=== PATIENT | female | born 1950 | race Caucasian/White ===

== ENCOUNTER 2018-07-20 23:19 | Emergency (ER) | payer MEDICARE ==
[~2018-07-20] VITALS: Ht 162.6 cm; Wt 106.8 kg
[2018-07-20 23:22] VITALS: Ht 162.6 cm; Wt 106.8 kg
[2018-07-20] MEDS ORDERED: COZAAR50 MG PO (23:25)
[2018-07-20] MEDS ORDERED: GLUCOPHAGE1000 MG PO (23:26)
[2018-07-20] MEDS ORDERED: NEURONTIN 300300 MG PO (23:26)
[2018-07-20] MEDS ORDERED: DESERYL50 M2 PO (23:26)
[2018-07-20] MEDS ORDERED: ZYLOPRIM300 MG PO (23:26)
[2018-07-20] MEDS ORDERED: ZOCOR40 MG PO (23:26)
[2018-07-21 00:06] VITALS: BP 183/71
== END 2018-07-21 00:07 | disposition home or self-care (01) ==
LOC: D.ER 23:19
DX: I10 Essential (primary) hypertension (principal); F41.9 Anxiety disorder, unspecified; E11.9 Type 2 diabetes mellitus without complications

== ENCOUNTER → 2019-11-24 16:47 | Outpatient (CLI) | payer MEDICARE, OTHER ==
[2018-07-20 23:22] VITALS: BMI 40.4
== END | disposition home or self-care (01) ==
LOC: D.RAD 16:47
PROVIDERS: ATTEND Emergency Medicine
DX: M79.661 Pain in right lower leg (principal); R20.2 Paresthesia of skin

== ENCOUNTER → 2020-03-08 21:29 | Outpatient (CLI) | payer MEDICARE, OTHER ==
[2018-07-20 23:22] VITALS: BMI 40.4
[~2020-03-08 21:29] MED LIST: COZAAR50 MG PO; DESERYL50 M2 PO; GLUCOPHAGE1000 MG PO; NEURONTIN 300300 MG PO; ZOCOR40 MG PO; ZYLOPRIM300 MG PO
[2020-03-08 23:18] LABS: ANION GAP 11.4 mmol/L (8-16); CALCIUM 9.4 mg/dL (8.5-10.1); CARBON DIOXIDE 30.3 mmol/L (21.0-32.0); CREATININE - SERUM 1.6 mg/dL (0.6-1.3); POTASSIUM - SERUM 5.7 mmol/L (3.5-5.1)
[2020-03-09 01:17] LABS: HEMATOCRIT 37.7 % (36.0-48.0); HEMOGLOBIN 11.6 g/dL (12-16); MCH 28.6 pg (26.0-34.0); MCHC 30.8 g/dL (31.0-37.0); MCV 93.1 fL (80.0-100.0); MEAN PLATELET VOLUME 10.3 fL (7.4-10.4); PLATELET COUNT 215 10x3/uL (130-400); RBC 4.05 10x6/uL (4.00-5.40); RDW 16.1 % (11.5-14.5); WBC 5.8 10x3/uL (4.8-10.8)
[2020-03-09 09:59] LABS: ANISOCYTOSIS OCC; LYMPHOCYTES 22 % (15-50); MONOCYTES 6 % (2-11); NEUTROPHILS 70 % (40-80); PLATELET ESTIMATE NORMAL
== END | disposition home or self-care (01) ==
LOC: D.LABREF 21:29
PROVIDERS: ATTEND Legal Medicine
DX: I12.9 Hypertensive chronic kidney disease with stage 1 through stage 4 chronic kidney disease, or unspecified chronic kidney disease (principal); N18.1 Chronic kidney disease, stage 1

== ENCOUNTER 2020-07-09 09:24 | Inpatient (IN) | payer MEDICARE, OTHER ==
[~2020-07-09] VITALS: Ht 162.6 cm; Wt 115.5 kg
[2020-07-09 09:55] LABS: BASOPHILS 0.6 % (0-2); EOSINOPHILS 2.2 % (0-7); HEMATOCRIT 33.4 % (36.0-48.0); HEMOGLOBIN 10.4 g/dL (12-16); IMMATURE GRANULOCYTES 0.2 % (0-5); LYMPHOCYTES 17.7 % (15-50); MCH 29.2 pg (26.0-34.0); MCHC 31.1 g/dL (31.0-37.0); MCV 93.8 fL (80.0-100.0); MEAN PLATELET VOLUME 9.1 fL (7.4-10.4); MONOCYTES 8.5 % (2-11); NEUTROPHILS 70.8 % (40-80); PLATELET COUNT 189 10x3/uL (130-400); RBC 3.56 10x6/uL (4.00-5.40); RDW 15.8 % (11.5-14.5); WBC 8.2 10x3/uL (4.8-10.8)
[2020-07-09 10:02] LABS: ANION GAP 15.3 mmol/L (8-16); CALCIUM 9.1 mg/dL (8.5-10.1); CARBON DIOXIDE 17.5 mmol/L (21.0-32.0); CREATININE - SERUM 2.1 mg/dL (0.6-1.3); POTASSIUM - SERUM 5.8 mmol/L (3.5-5.1)
[2020-07-09 10:07] LABS: ALBUMIN 3.7 g/dL (3.4-5.0); BILIRUBIN - TOTAL 0.28 mg/dL (0.2-1.3); PROTEIN - SERUM 7.2 g/dL (6.4-8.2)
[2020-07-09 10:31] LABS: BILIRUBIN NEGATIVE (NEGATIVE); KETONE NEGATIVE (NEGATIVE); NITRITE NEGATIVE (NEGATIVE); UROBILINOGEN NORMAL mg/dL (< 2)
[2020-07-09 10:33] LABS: BACTERIA MODERATE HPF (NONE SEEN)
[2020-07-09 10:49] LABS: CKMB 1.9 U/L (0.0-3.6); CREATINE KINASE 74 UL (21-215); LIPASE 258 U/L (73-393); MAGNESIUM - SERUM 1.5 mg/dL (1.8-2.4); TROPONIN-I 0.017 ng/mL (0.000-0.060)
[2020-07-09 13:35] VITALS: BP 122/45
[2020-07-09 15:28] VITALS: BP 121/43
[2020-07-09 19:17] VITALS: BP 138/48
[2020-07-09 22:30] VITALS: BP 131/53
[2020-07-10] VITALS: BP 142/47
[2020-07-10 04:00] VITALS: BP 137/60
--- NOTE | 2020-07-10 06:55 | NUR ---
PT REPORT FROM DAYNE SHANKAR AT THIS TIME
[2020-07-10 07:28] LABS: BASOPHILS 0.4 % (0-2); EOSINOPHILS 2.5 % (0-7); HEMATOCRIT 29.9 % (36.0-48.0); HEMOGLOBIN 9.3 g/dL (12-16); LYMPHOCYTES 16.2 % (15-50); MCH 29.3 pg (26.0-34.0); MCHC 31.1 g/dL (31.0-37.0); MCV 94.3 fL (80.0-100.0); MEAN PLATELET VOLUME 9.8 fL (7.4-10.4); MONOCYTES 10.6 % (2-11); NEUTROPHILS 70.3 % (40-80); PLATELET COUNT 196 10x3/uL (130-400); RBC 3.17 10x6/uL (4.00-5.40); RDW 15.9 % (11.5-14.5); WBC 6.8 10x3/uL (4.8-10.8)
--- NOTE | 2020-07-10 07:30 | NUR ---
PT AAOX3, PT SITTING ON BED SIDE, PT DENIES ANY DISTRESS, RESP EVEN AND NONLABORED, LUNGS CTA, DIMINISHED IN THE BASES. ABD SOFT, BS X 4
[2020-07-10 07:36] LABS: ALBUMIN 3.2 g/dL (3.4-5.0); BILIRUBIN - TOTAL 0.16 mg/dL (0.2-1.3); CALCIUM 7.7 mg/dL (8.5-10.1); CARBON DIOXIDE 16.1 mmol/L (21.0-32.0); CREATININE - SERUM 1.8 mg/dL (0.6-1.3); POTASSIUM - SERUM 5.1 mmol/L (3.5-5.1); PROTEIN - SERUM 6.2 g/dL (6.4-8.2)
[2020-07-10 08:00] VITALS: BP 145/51
[2020-07-10 11:19] VITALS: Ht 162.6 cm; Wt 115.5 kg
[2020-07-10 11:50] VITALS: BP 105/81
--- NOTE | 2020-07-10 11:54 | NUR ---
SPOKE WITH DR MORALES, AND HE ADVISED PT IS OKAY FOR DISCHARGE HOME. PT WILL NEED PRESCRIPTIONS FOR LEVAQUIN 500MG PO DAILY X 7 DAYS FLAGYL 500MG PO EVERY 8 HOURS X 7 DAYS CALLED IN FOR HER ADVISED FOR PATIENT TO FOLLOW UP WITH A PCP IN 2 WEEKS
--- NOTE | 2020-07-10 12:15 | NUR ---
MEDICATIONS CALLED INTO [facility] [address] BY THE [facility] FOR LEVAQUIN FLAGYL CARDURA SODIUM BICARB.
[2020-07-10] MEDS ORDERED: CARDURA2 MG PO (12:25)
[2020-07-10] MEDS ORDERED: LEVOFLOXACIN500 MG PO (12:25)
[2020-07-10] MEDS ORDERED: SODIUM BICARBO650 MG PO (12:25)
[2020-07-10] MEDS ORDERED: FLAGYL500 MG PO (12:25)
== END 2020-07-10 13:09 | disposition home or self-care (01) | DRG 394 ==
LOC: D.ER 09:24 → D.EDHOLD 12:07
PROVIDERS: Family Medicine; ADMIT Emergency Medicine; ATTEND Emergency Medicine
DX: I88.0 Nonspecific mesenteric lymphadenitis (principal); N17.9 Acute kidney failure, unspecified; N39.0 Urinary tract infection, site not specified; L40.9 Psoriasis, unspecified; E78.5 Hyperlipidemia, unspecified; E86.0 Dehydration; E11.22 Type 2 diabetes mellitus with diabetic chronic kidney disease; I12.9 Hypertensive chronic kidney disease with stage 1 through stage 4 chronic kidney disease, or unspecified chronic kidney disease; N18.9 Chronic kidney disease, unspecified; E87.5 Hyperkalemia